=== PATIENT | male | born 2005 | race Caucasian/White ===

== ENCOUNTER 2025-02-24 18:43 | Emergency (ER) | payer OTHER, SELFPAY ==
[2025-02-24 18:51] VITALS: BP 123/63; PULSE 86; RESP 16; TEMP 36.5; O2SAT 98
== END 2025-02-24 21:24 | disposition left against medical advice (07) ==
LOC: ANHED 21:16
DX: R19.7 Diarrhea, unspecified (principal)
CPT/HCPCS: 99199